=== PATIENT | male | born 1985 | race Caucasian/White ===

== ENCOUNTER 2018-05-10 09:22 | Emergency (ER) | payer BC, OTHER ==
[~2018-05-10] VITALS: Ht 172.7 cm; Wt 87.7 kg
[2018-05-10 09:37] VITALS: TEMP 97.9
[2018-05-10 10:15] LABS: BASO % 0.3 % (0.0-2.0); EOS # 0.1 (0.0-0.7); EOS % 0.8 % (0-4.0); GRAN # 6.5 (1.4-6.5); GRAN % 65.5 % (42.2-75.2); HEMATOCRIT 42.9 % (42.0-52.0); HEMOGLOBIN 14.7 g/dl (13.5-18.0); LYMPH # 2.6 (1.2-3.4); LYMPH % 25.7 % (20.0-51.0); MEAN CELL VOLUME 87 fl (80.0-100.0); MEAN CORPUSCULAR HEMOGLOBIN 30 pg (27.0-31.0); MEAN CORPUSCULAR HGB CONC 34 g/dl (33.0-37.0); MEAN PLATELET VOLUME 9.6 fl (7.4-10.4); MONO # 0.7 (0.1-0.6); MONO % 7.2 % (1.7-9.3); PLATELET COUNT 243 K/mm3 (130-400); RED BLOOD COUNT 4.93 M/mm3 (4.20-5.60); REDCELL DISTRIBUTION WIDTH-CV 13.1 % (11.5-14.5)
[2018-05-10 10:37] LABS: ALBUMIN 4.3 gm/dL (3.5-5.0); BILIRUBIN,TOTAL 0.4 mg/dL (0.0-1.0); C-REACTIVE PROTEIN 0.6 mg/dL (0.0-0.9); CALCIUM 9.1 mg/dL (8.4-10.2); CREATININE, serum 0.93 mg/dL (0.66-1.25); POTASSIUM 4.2 mmol/L (3.4-5.0); TOTAL PROTEIN 7.3 gm/dL (6.4-8.2)
[2018-05-10 11:10] LABS: COLLECTION METHOD CLEAN CATCH
[2018-05-10 11:19] LABS: MUCOUS Present /lpf; PH 6 (5-8); SQUAMOUS EPITHELIAL 0-2 /hpf; URINE APPEARANCE Clear; URINE BACTERIA None Seen /hpf; URINE BILIRUBIN Negative (NEGATIVE); URINE BLOOD 3+ (NEGATIVE); URINE COLOR Yellow; URINE GLUCOSE Negative (NEGATIVE); URINE KETONE Negative (NEGATIVE); URINE LEUKOCYTE ESTERASE Negative (NEGATIVE); URINE NITRATE Negative (NEGATIVE); URINE PROTEIN(semi-quant) 1+ (NEGATIVE); URINE RBC >50 /hpf; URINE UROBILINOGEN Negative (NEGATIVE)
[2018-05-10] MEDS ORDERED: PERCOCET 325 MG1 TA2 PO (11:43)
[2018-05-10 11:55] VITALS: BP 113/68; PULSE 81
== END 2018-05-10 11:55 | disposition home or self-care (01) ==
LOC: COL.ER 09:22
PROVIDERS: Nurse Practitioner
DX: R10.32 Left lower quadrant pain (principal); N20.1 Calculus of ureter; F17.210 Nicotine dependence, cigarettes, uncomplicated; Z87.442 Personal history of urinary calculi; Z88.8 Allergy status to other drugs, medicaments and biological substances
CPT/HCPCS: J2405; J3010; J7030; Q9967

== ENCOUNTER 2018-05-22 05:35 | Day surgery (SDC) | payer BC, OTHER ==
[~2018-05-22] VITALS: Ht 172.7 cm; Wt 84.6 kg
[~2018-05-22 05:35] MED LIST: PERCOCET 325 MG1 TA2 PO
[2018-05-22 06:10] VITALS: BP 123/73; PULSE 78; TEMP 98.5
[2018-05-22 08:20] VITALS: BP 113/70; PULSE 61; TEMP 97.4
[2018-05-22 08:35] VITALS: BP 110/75; PULSE 74
[2018-05-22 09:08] VITALS: BP 104/64; PULSE 73; TEMP 97.2
== END 2018-05-22 09:05 | disposition home or self-care (01) ==
LOC: SDCO 05:35
DX: N20.1 Calculus of ureter (principal); F17.210 Nicotine dependence, cigarettes, uncomplicated; Z83.3 Family history of diabetes mellitus
CPT/HCPCS: J0690; J1100; J1885; J2270; J2405; J2704; J3010; J7120; Q9967